=== PATIENT | male | born 2000 | race Caucasian/White ===

== ENCOUNTER 2020-02-22 10:51 | Emergency (ER) | payer OTHER ==
[2020-02-22] MEDS ORDERED: Acetaminophen 500 MG TAB ONE (11:43)
[2020-02-22] MEDS ORDERED: Ibuprofen 200 MG TAB ONE (11:43)
--- NOTE | 2020-02-22 11:47 | ULT ---
SCROTAL ULTRASOUND INDICATION: Penis pain and left-sided testicular pain TECHNIQUE: Grayscale, color Doppler spectral Doppler images were obtained of the scrotum. COMPARISON: None. FINDINGS: Right Testicle: Size: 2.4 x 4.1 x 2.2 cm. Flow: There is normal vascular flow to the right testicle Hydrocele: No right-sided hydrocele is evident Epididymis: The right epididymis appears within normal limits. Left Testicle: Size: 3.0 x 4.5 x 2.0 cm. Flow: There is normal vascular flow to left testicle. Hydrocele: Small left hydrocele Epididymis: The left epididymis appears within normal limits. Additional findings: None. Impression: 1. No evidence of testicular torsion or intratesticular mass. 2. Tiny left hydrocele
== END 2020-02-22 12:40 | disposition home or self-care (01) ==
LOC: ERS 10:51
DX: K40.90 Unilateral inguinal hernia, without obstruction or gangrene, not specified as recurrent (principal); F17.290 Nicotine dependence, other tobacco product, uncomplicated
CPT/HCPCS: 76870; 93976